=== PATIENT | female | born 1985 | race Hispanic/Latino ===

== ENCOUNTER 2020-06-01 01:02 | Emergency (ER) | payer OTHER ==
[~2020-06-01] VITALS: Ht 170.2 cm; Wt 120.2 kg
[2020-06-01] MEDS ORDERED: MS CONTIN30 MG PO (02:08)
[2020-06-01] MEDS ORDERED: FENTANYL1 EAC5 TP (02:08)
[2020-06-01] MEDS ORDERED: OLANZAPINE5 MG PO (02:08)
[2020-06-01] MEDS ORDERED: PROCHLORPERAZIN10 MG PO (02:08)
[2020-06-01] MEDS ORDERED: OMEPRAZOLE40 MG PO (02:08)
[2020-06-01] MEDS ORDERED: ONDANSETRON ODT8 MG PO (02:08)
[2020-06-01] MEDS ORDERED: ONDANSETRON HCL INJ 2MG/ML 2ML 2 MG/ML VIAL IV STA (03:09)
[2020-06-01] MEDS ORDERED: MORPHINE SULFATE INJ 4 MG/ML INJ 1ML IV ONE (03:15)
[2020-06-01] MEDS ORDERED: CEFTRIAXONE SOD 1 GM/NS 50 ML 50 ML IV ONE ×2 (03:15→03:31)
[2020-06-01] MEDS ORDERED: HYDROCODONE/APAP 5MG-325MG TAB PO ONE (03:15)
[2020-06-01] MEDS ORDERED: MORPHINE SULFATE INJ 4 MG/ML INJ 1ML ONE (03:31)
[2020-06-01] MEDS ORDERED: ONDANSETRON HCL INJ 2MG/ML 2ML 2 MG/ML VIAL ONE (03:31)
[2020-06-01] MEDS ORDERED: CEFTRIAXONE SOD 1 GM VIAL ONE (04:00)
[2020-06-01 04:48] VITALS: BP 120/73
== END 2020-06-01 04:19 | disposition home or self-care (01) ==
LOC: FSED 01:30
DX: L03.116 Cellulitis of left lower limb (principal); M79.652 Pain in left thigh; Z85.42 Personal history of malignant neoplasm of other parts of uterus
CPT/HCPCS: 80053; 85025; 96372; 99283; J0696 ×2; J2270; J2405